=== PATIENT | male | born 1985 | race Caucasian/White ===

== ENCOUNTER 2017-06-14 01:35 | Emergency (ER) | payer OTHER ==
[~2017-06-14] VITALS: Ht 182.9 cm; Wt 74.8 kg
[2017-06-14 03:11] VITALS: BP 113/74
== END 2017-06-14 03:12 | disposition home or self-care (01) ==
LOC: ER 01:35
DX: S20.212A Contusion of left front wall of thorax, initial encounter (principal); F17.210 Nicotine dependence, cigarettes, uncomplicated; F12.10 Cannabis abuse, uncomplicated; Y00.XXXA Assault by blunt object, initial encounter; Y93.89 Activity, other specified; Y92.89 Other specified places as the place of occurrence of the external cause; Y99.8 Other external cause status